=== PATIENT | male | born 1995 | race Caucasian/White ===

== ENCOUNTER 2017-11-06 20:16 | Emergency (ER) | payer OTHER ==
[~2017-11-06] VITALS: Ht 177.8 cm; Wt 72.2 kg
[2017-11-06 20:29] VITALS: TEMP 36.6; Ht 177.8 cm; Wt 72.2 kg
[2017-11-06] MEDS ORDERED: INSULIN GLARGINE SOLOSTAR 100 UNITS/ML 3 ML PEN SC STA (21:26)
--- NOTE | 2017-11-06 22:09 | EMERGENCY ROOM VISIT NOTE ---
History First contact with patient: 20:38 Chief Complaint: MEDICATION REFILL REQUEST Stated Complaint: "I NEED A PRESCRIPTION FOR LONG ACTING INSULIN History of Present Illness The patient is a 22 year old male who presents to the Emergency Room requesting a medication refill. The patient is a type I diabetic. He has an insulin pump but states that the pump stopped working approximately 1 hour ago. He contacted his cradle slide maker and he will be receiving a new pump in 2 days. The patient has been using the insulin pump for 2 years. He states that he does have Humalog at home, but has no long-acting insulin. He states that his last blood sugar was 202. He denies any complaints at this time. Review of Systems A complete 10 point review of systems was reviewed with the patient with pertinent positives and negatives as per history of present illness. All else were negative. Past Medical/Surgical History Medical Problems: (1) Type I diabetes mellitus Social History Smoking Status: Never Smoker Housing Status: lives with roommate Occupation Status: [place] [employer] student Physical Exam Vital Signs Date Time Temp Pulse Resp B/P (MAP) Pulse Ox O2 Delivery O2 Flow Rate FiO2 11/06/17 22:48 70 18 108/78 97 11/06/17 20:29 36.6 60 18 147/88 98 Room Air Physical Exam VITALS: Vitals are noted on the nurse's note and reviewed by myself. Vital signs stable. GENERAL: This is a 22-year-old male, in no acute distress, nondiaphoretic, well- developed well-nourished. SKIN: No rashes. HEENT: Normocephalic. PERRLA. Mucous membranes moist. HEART: Regular rate and rhythm without murmurs gallops or rubs. LUNGS: Clear to auscultation bilaterally without wheezes, rales or rhonchi. NEURO: Patient was alert and oriented to person place and time. Medical Decision & Procedures Medications Administered Medications (Trade) Dose Ordered Sig/[place] Route Start Time Stop Time Status Last Admin Dose Admin Insulin Glargine (Lantus Solostar Pen) 20 units NOW STAT SC 11/06/17 21:26 11/06/17 21:29 DC 11/06/17 22:07 20 UNITS Medical Decision The patient was evaluated as above. I was able to speak with the pediatric cradle slide maker on-call for the patient's primary endocrinology group. They recommended that the patient receive 20 units of Lantus nightly. They also made recommendations regarding the patient's insulin to carb ratio which I discussed with the patient. The patient was given a Lantus pen. He was given syringes to use with his Humalog for boluses. He is to contact his cradle slide maker office for any further questions. He was advised that when he does receive the pump, he should hook it up when his Lantus is due to avoid hypoglycemia. He verbalized understanding of my assessment and treatment plan and was discharged home in good condition. Medication Reconcilliation Current Medication List: was personally reviewed by me Blood Pressure Screening Patient's blood pressure: Normal blood pressure Impression Primary Impression: Complication of insulin pump Departure Information Dispostion Home / Self-Care Condition GOOD Referrals No Doctor, Assigned (PCP) Patient Instructions [facility] Additional Instructions Take your Lantus and Humalog as directed until your pump is functional: Lantus: Use 20 units at bed time. Humalog: Your target blood sugar is 130. Your insulin to carb ratio is 1:10 for breakfast and dinner. This means that if you eat a meal with 100 g of carbs, you will need to give yourself 10 units of Humalog to bolus for this meal. You can find the number of units by dividing the number of grams of carbohydrates by 10. Your insulin to carb ratio is 1:8 for lunch. This means that if you eat a meal with 100 g of carbs, you will need to give yourself 12.5 units of Humalog to bolus for this meal. You can find the number of units by dividing the number of grams of carbohydrates by 8. Your correction factor is 40. If your blood sugar is high, find the amount of insulin to give by subtracting your target blood sugar from this number, then dividing by 40. For instance, if your blood sugar is 300 and your target blood sugar is 130, the difference between these is 170. Divide this number by 40 to find that you would need 4.25 units of insulin to correct for this. You can round this to the closest whole number. Make sure that when you do receive your pump, you connect it at the time that you have been giving yourself the Lantus at night to avoid low blood sugars. If you have any further questions, you may contact your cradle slide maker who can help answer these questions for you. Problem Qualifiers Primary Impression: Complication of insulin pump Device complication type: mechanical Mechanical complication type: mechanical breakdown Encounter type: initial encounter Qualified Codes: T85.614A - Breakdown (mechanical) of insulin pump, initial encounter
[2017-11-06 22:48] VITALS: BP 108/78; PULSE 70; O2SAT 97
== END 2017-11-06 22:48 | disposition home or self-care (01) ==
LOC: C.EDB 20:20 → C.EDD 22:48
DX: T85.614A Breakdown (mechanical) of insulin pump, initial encounter (principal); X58.XXXA Exposure to other specified factors, initial encounter; Z76.0 Encounter for issue of repeat prescription; E10.9 Type 1 diabetes mellitus without complications